=== PATIENT | female | born 1955 | race Caucasian/White ===

== ENCOUNTER 2016-09-10 20:04 | Emergency (ER) | payer OTHER, MEDICARE ==
[~2016-09-10 20:04] MED LIST: ALPRAZOLAM1 MG PO; AUGMENTIN 500M500 MG PO; CYCLOBENZAPRINE10 M1 PO; ENDOCET 325 MG-1 TA1 PO; ESCITALOPRAM10 MG PO; ESCITALOPRAM20 MG PO; GUAIFENESIN DM S5 ML PO; INCRUSE ELLI62.5 MCG PO; MEDROL4 M2 PO; MICARDIS HCT 251 TAB PO; OXYCODONE HCL10 M2 PO; OXYCODONE HYDRO10 M1 PO; PREDNISONE10 M2 PO; PROAIR HFA0.09 MG/Ac PO; ROBITUSSIN W/CO10 ML PO; SPIRIVA 18 MCG18 MCG INH; SPIRIVA18 MCG INH; TAMIFLU30 M1 PO; TESSALON PERLE100 M1 PO; ZITHROMAX Z-PA250 M1 PO
--- NOTE | 2016-09-10 20:56 | ED HAND/WRIST INJURY COMPLAINT ---
History of Present Illness General Chief Complaint: Hand or Wrist Injury Stated Complaint: RIGHT THUMB CRUSHED IN CAR DOOR Source: patient Exam Limitations: no limitations Vital Signs & Intake/Output Vital Signs & Intake/Output Vital Signs Date Time Temp Pulse Resp B/P Pulse O2 O2 Flow FiO2 Ox Delivery Rate 09/10 2129 97.2 72 16 129/89 96 Room Air 09/10 2020 97.0 69 16 135/92 95 Room Air Allergies Coded Allergies: NO KNOWN ALLERGIES (02/16/15) Reconcile Medications Albuterol Sulfate (Proair Hfa) 0.09 MG/Actuation ELENA 2 PUFF PO TID PRN DIFFICULTY BREATHING (Reported) Alprazolam 1 MG TABLET 1 TAB PO TID ANXIETY (Reported) Benzonatate (Tessalon Perle) 100 MG CAPSULE 1 CAP PO TID PRN COUGH Cyclobenzaprine HCl 10 MG TABLET 10 MG PO TID Muscle relaxer Escitalopram Oxalate 10 MG TABLET 1 TAB PO DAILY DEPRESSION (Reported) Guaifenesin/Dextromethorphan (Guaifenesin Dm Syrup) 100 MG-10 MG/5 ML SYRUP 10 ML PO Q4P PRN COUGH Oseltamivir Phosphate (Tamiflu) 30 MG CAPSULE 1 TAB PO BID FLU Please take 1 on 06/18 pm. Oxycodone HCl 10 MG TABLET 10 MG PO Q6 PRN Chronic pain Please follow up with pain clinic Prednisone 10 MG TABLET 1 TAB PO AD COPD exacerbation please take 5 tablets on 05/20 - 05/21 please take 4 tablets on 05/22 - 05/24 please take 3 tablets on 05/25 - 05/27 please take 2 tablets on 05/28 - 05/30 please take 1 tablet on 05/31 - 06/02 TELMISARTAN/HYDROCHLOROTHIAZID (Micardis Hct 80-25 MG Tablet) 80 MG-25 MG TABLET 1 TAB PO DAILY HTN (Reported) Tiotropium Adrian (Spiriva) 18 MCG CAP.W.DEV 1 CAP INH DAILY COPD Triage Note: TRIAGE; PT TO ED WITH RT THUMB GETTING SLAMMED IN CAR DOOR. Triage Nurses Notes Reviewed? yes Occurred: just prior to arrival Duration: hour(s): (1) Timing: no prior history Injury Environment: street Severity: moderate Severity Numbers: 7 Context: crush Method of Injury: direct blow Modifying Factors: Improves With: cold therapy, immobilization. Worsens With: movement. Associated Symptoms: none HPI: Patient is a 61-year-old female presenting to the emergency department with chief complaint of right thumb pain after slamming it in a car door prior to arrival. Pain is achy and throbbing worse with movement. Denies numbness or tingling. No history of similar injury. Denies taking anything for pain prior to arrival. Pain radiates up the right thumb. Denies any nausea vomiting fevers or chills chest pain or shortness of breath. She has not taken her pain medication today and thinks that may be causing her symptoms to worsen. Denies Other injury. (SHAJI OLVERA) Past History Travel History Traveled to [place] past 21 day No Medical History Any Pertinent Medical History? see below for history Neurological: NERVE DAMAGE RIGHT HAND EENT: NONE Cardiovascular: hypertension Respiratory: COPD, emphysema Gastrointestinal: NONE Hepatic: NONE Renal: NONE Musculoskeletal: osteoarthritis, LUMBAR SPINE DISEASE Psychiatric: anxiety Endocrine: NONE Blood Disorders: NONE Cancer(s): NONE SALESPERSON SHOES/Reproductive: NONE History of MRSA: No History of VRE: No History of CDIFF: No Pneumonia Vaccine: 06/04/11 Surgical History Surgical History: non-contributory Psychosocial History Who do you live with Patient/Self What is your primary language Colombian Tobacco Use: Current Daily Use Daily Tobacco Use Amount/Type: => 5 Cigarettes daily Family History Hx Contributory? No (SHAJI OLVERA) Review of Systems Review of Systems Constitutional: Reports: no symptoms. Comments Review of systems: See HPI, All other systems negative. Constitutional, no chills fever or weight loss HEENT: No visual changes no sore throat Cardiovascular: No chest pain Skin, no jaundice no rashes Respiratory: No dyspnea cough sputum or hemoptysis GI: No nausea no vomiting Muscle skeletal: no back pain, no neck pain, Neurologic: No numbness Psych: No stress anxiety Immunology: No splenectomy or history of AIDS (SHAJI OLVERA) Physical Exam Physical Exam General Appearance: well developed/nourished, no apparent distress, alert, awake , comfortable Hand Left: normal inspection, normal range of motion Hand Right: TENDERNESS TO PALPATION OVER THE RIGHT FIRST DIGIT, MORE SO FOCALLY TENDER AROUND THE pip JOINT. Comments: Well-developed well-nourished no apparent distress. HEENT: Atraumatic, extraocular motion intact Neck: Normal inspection Back: Nontender Respiratory: No respiratory distress Extremities: No edema limited range of motion of the right thumb secondary to pain. Pain to palpation over the beach joint of the right thumb. No obvious edema or erythema or ecchymosis noted. Capillary refills intact in upper extremities bilaterally. Radial pulses are 2+ bilaterally. Nontender to palpation over the third digits of the right hand. Neuro: Alert and oriented x3 Psych: Mood affect normal, normal memory normal judgment. (JEFFREY YOUNG,SHAJI) Progress Differential Diagnosis: contusion, dislocation, fracture, sprain Plan of Care: Current Medications Sig/Purvi Start time Last Medication Dose Stop Time Status Admin Oxycodone HCl 5 MG ONCE ONE 09/10 2114 UNVr (Roxicodone) 09/11 2115 Diagnostic Imaging: Viewed by Me: Radiology Read. Discussed w/RAD: Radiology Read. Radiology Impression: PATIENT: EDELMIRA WELLS PRESENT AGE: 61 PATIENT ACCOUNT NO: [id number] : 54 LOCATION: [facility] ORDERING PHYSICIAN: SHAJI YOUNG SERVICE DATE: 09/10/16-2021 EXAM TYPE: RAD - XRY-FINGERS, RIGHT EXAMINATION: XR THUMB, RIGHT CLINICAL INFORMATION: Compression injury to the right thumb. COMPARISON: None. TECHNIQUE: Single AP view of the right hand as well as oblique and lateral views of the right thumb. FINDINGS: No acute osseous or articular abnormality involving the right thumb. There are severe degenerative changes involving the first carpal metacarpal joint with large osteophytes visualized surrounding the thumb. No radiopaque foreign bodies are identified. IMPRESSION: No acute osseous or articular abnormality involving the right thumb. Specifically, no acute fracture or dislocation of the right thumb. Incidental note is made of severe degenerative changes at the base of the right thumb. Comments: Pending x-ray results. Patient medicated with oxycodone for pain. She is not driving home. 09/10/2016 9:18:15 PM patient informed of x-ray results. No fracture identified. Likely contusion. Patient treated symptomatically. She'll follow up with PCP. (SHAJI OLVERA) Departure Departure Time of Disposition: 2117 Disposition: HOME OR SELF CARE Condition: Stable Clinical Impression Primary Impression: Finger contusion Qualifiers: Encounter type: initial encounter Finger: thumb Damage to nail status: without damage Laterality: right Qualified Code: S60.011A - Contusion of right thumb without damage to nail, initial encounter Referrals: PATIENT HAS NO PRIMARY CARE DR (PCP/Family) Additional Instructions: Follow-up with your primary care physician call to make an appointment. Rest ice and elevate your hand. Take previously prescribed pain medication. Return for worsening symptoms or concerns. Departure Forms: Customer Survey General Discharge Information (SHAJI OLVERA) PA/HUMAN RESOURCES PROJECT COORDINATOR Co-Sign Statement Statement: ED Attending supervision documentation- x I saw and evaluated the patient. I have also reviewed all the pertinent lab results and diagnostic results. I agree with the findings and the plan of care as documented in the PA's/HUMAN RESOURCES PROJECT COORDINATOR's documentation. [] I have reviewed the ED Record and agree with the PA's/HUMAN RESOURCES PROJECT COORDINATOR's documentation. [] Additions or exceptions (if any) to the PAs/HUMAN RESOURCES PROJECT COORDINATOR's note and plan are summarized below: [] (WALESKA PERRIN,KACEY)
--- NOTE | 2016-09-10 21:16 | RADIOLOGY REPORT ---
EXAMINATION: XR THUMB, RIGHT CLINICAL INFORMATION: Compression injury to the right thumb. COMPARISON: None. TECHNIQUE: Single AP view of the right hand as well as oblique and lateral views of the right thumb. FINDINGS: No acute osseous or articular abnormality involving the right thumb. There are severe degenerative changes involving the first carpal metacarpal joint with large osteophytes visualized surrounding the thumb. No radiopaque foreign bodies are identified. IMPRESSION: No acute osseous or articular abnormality involving the right thumb. Specifically, no acute fracture or dislocation of the right thumb. Incidental note is made of severe degenerative changes at the base of the right thumb.
[2016-09-10 21:30] VITALS: BP 129/89
== END 2016-09-10 21:30 ==
LOC: ERH 20:04
DX: S60.011A Contusion of right thumb without damage to nail, initial encounter (principal); W23.0XXA Caught, crushed, jammed, or pinched between moving objects, initial encounter
CPT/HCPCS: 73140-RT